=== PATIENT | female | born 1940 | race Caucasian/White ===

== ENCOUNTER 2024-02-22 19:59 | Emergency (ER) | payer SELFPAY ==
[2024-02-22 20:37] LABS: HEMATOCRIT 37.9 % (37.0-47.0); HEMOGLOBIN 12.4 g/dL (12.0-16.0); MEAN CORPUSCULAR HEMOGLOBIN 28.7 pg (27.0-34.0); MEAN CORPUSCULAR HGB CONC 32.7 g/dL (33.0-35.0); MEAN CORPUSCULAR VOLUME 87.7 fL (80-100); PLATELET COUNT,PLT 310 10^3/uL (150-450); RED BLOOD CELL COUNT 4.32 10^6/uL (4.2-5.4); WHITE BLOOD CELL COUNT,WBC 13.1 10^3/uL (5.0-10.0)
[2024-02-22] MEDS: Sodium Chloride 0.9% 10 ML Syringe FLUSH PRN (20:40)
[2024-02-22 20:48] LABS: LYMPHOCYTES PERCENT AUTO 14.8 % (20.5-50.1); MONOCYTES PERCENT AUTO 6.1 % (2-8)
[2024-02-22 20:49] LABS: BASOPHILS PERCENT AUTO 1.1 % (0.0-1.0)
[2024-02-22 20:58] LABS: ALBUMIN 3.4 g/dL (3.4-5.0); ANION GAP 11.6 mEq/L (7-13); BILIRUBIN TOTAL 0.4 mg/dL (0.2-1.0); BUN/CREATININE RATIO 19.8 (No establ ref range); CREATININE 1.06 mg/dL (0.55-1.02); EST CRCL DRUG DOSING (CG) 32.36 mL/min; MAGNESIUM 1.9 mg/dL (1.8-2.4); POTASSIUM,K 3.6 mmol/L (3.5-5.1); PROTEIN TOTAL,TP 6.8 g/dL (6.4-8.2)
[2024-02-22 21:09] LABS: EOSINOPHILS PERCENT MAN 1 % (1-3); LYMPHOCYTES PERCENT MAN 15 % (20-50); MONOCYTES PERCENT MAN 4 % (2-8); SEG NEUTROPHILS PERCENT MAN 80 % (42-75)
[2024-02-22 21:16] LABS: APPEARANCE,URINE SLIGHTLY CLOUDY (CLEAR); BILIRUBIN,URINE NEGATIVE (NEGATIVE); COLOR,URINE YELLOW (YELLOW); GLUCOSE,URINE NEGATIVE (NEGATIVE); KETONES,URINE NEGATIVE (NEGATIVE); LEUKOCYTE ESTERASE,URINE MODERATE (NEGATIVE); NITRITE,URINE NEGATIVE (NEGATIVE); OCCULT BLOOD,URINE TRACE-INTACT (NEGATIVE); PROTEIN,URINE NEGATIVE (NEGATIVE); UROBILINOGEN,URINE 0.2 mg/dL (0.2-1.0)
[2024-02-22 21:24] LABS: AMORPHOUS SEDIMENT,URINE RARE /HPF (NOT SEEN); BACTERIA,URINE FEW /HPF (0-FEW/HPF); EPITHELIAL CELLS,URINE FEW /HPF (NOT SEEN); MUCUS,URINE FEW /LPF (NOT SEEN); RBC,URINE 75-100 /HPF (0-5); WBC,URINE 0-5 /HPF (0-5/HPF)
[2024-02-22] MEDS: Take Home: Ciprofloxacin HCl 500 MG, 6 Tab Pack PO ONE (22:01)
[2024-02-22] MEDS: Acetaminophen 500 MG Tab PO ONE (22:01)
== END 2024-02-22 22:26 | disposition home or self-care (01) ==
LOC: DL.ED 19:59
DX: N30.01 Acute cystitis with hematuria (principal); Z88.0 Allergy status to penicillin
CPT/HCPCS: 36415; 80053; 81001; 83605; 83735; 85025; 87086; 99284; A9270; J3490